=== PATIENT | male | born 1955 | race Caucasian/White ===

== ENCOUNTER 2019-02-06 20:38 | Emergency (ER) | payer OTHER ==
[2019-02-06] MEDS: SODIUM CHLORIDE 0.9% 1000ML 1,000 ML IVS ONE (21:06)
[2019-02-06] MEDS: MEPERIDINE HCL 50 MG/ML VIAL IV ONE ×2 (21:07→21:36)
[2019-02-06] MEDS: ONDANSETRON ODT 8 MG TAB SL ONE (21:07)
[2019-02-06] MEDS: methylPREDNISolone SODIUM SUC 125 MG/2 ML VIAL IV ONE (21:36)
--- NOTE | 2019-02-06 21:48 | ED.PDOC ---
History of Present Illness - General Chief Complaint: Bite: Animal/Insect/Human Stated Complaint: stung by several jt at once Time Seen by Provider: 02/06/19 20:49 Source: patient, family Exam Limitations: no limitations - History of Present Illness Initial Comments: patient comes in today with several 100 stings from what appeared to be wasps or honeybees. Prior to arriving patient had a friend remove one to 200 of the stingers. He has aches and pains and feels like he still has some in his body. He took 50 mg of Benadryl. Has no shortness of breath, wheezing, or history of allergic reaction to bees or wasps. He otherwise feels well with the exception of headache and muscle aches. He has no past medical history. Patient does have an allergy to codeine but states although that makes him hallucinate Demerol has been fine and he believes he can also tolerate morphine. Patient is up to date on his tetanus shot. Timing/Duration: momentarily Severity: severe Improving Factors: nothing Worsening Factors: nothing Associated Symptoms: malaise Allergies/Adverse Reactions: Allergies Codeine Allergy (Verified 09/19/14 11:07) Home Medications: Ambulatory Orders Meclizine HCl 25 mg PO Q4-6H PRN #30 chw 11/16/14 Risperidone [Risperdal] 2 mg PO 11/16/14 Sertraline HCl 150 mg PO DAILY 11/16/14 Review of Systems - Review of Systems Constitutional: States: fever, malaise, weakness EENTM: States: no symptoms reported. Denies: eye pain, ear pain, nose congestion Respiratory: States: no symptoms reported. Denies: cough, short of breath, wheezing Cardiology: States: no symptoms reported. Denies: chest pain, edema, palpitations Gastrointestinal/Abdominal: States: no symptoms reported. Denies: abdominal pain, diarrhea, nausea Genitourinary: States: no symptoms reported Musculoskeletal: States: see HPI Skin: States: see HPI Past Medical History (General) - Patient Medical History Hx Seizures: No Hx Stroke: No Hx Dementia: No Hx Asthma: No Hx of COPD: No Hx Cardiac Disorders: No Hx Congestive Heart Failure: No Hx Pacemaker: No Hx Hypertension: No Hx Thyroid Disease: No Hx Diabetes: No Hx Gastroesophageal Reflux: No Hx Renal Disease: No Hx Cancer: No Hx of HIV: No Hx Hepatitis C: No Hx MRSA: No Surgical History: other - Vaccination History Hx Tetanus, Diphtheria Vaccination: Yes Hx Influenza Vaccination: No Hx Pneumococcal Vaccination: No - Social History Hx Tobacco Use: No Hx Chewing Tobacco Use: No Hx Alcohol Use: Yes - occ Hx Substance Use: No Hx Substance Use Treatment: No Hx Depression: No Hx Physical Abuse: No Hx Emotional Abuse: No Hx Suspected Abuse: No Family Medical History - Family History Daughter Family History: No Known Living Status: Still Living Physical Exam - Physical Exam General Appearance: Alert, Comfortable, No apparent distress Eye Exam: bilateral normal Ears, Nose, Throat: hearing grossly normal, normal ENT inspection, normal pharynx Neck: non-tender, full range of motion, supple, normal inspection Respiratory: chest non-tender, lungs clear, normal breath sounds, no respiratory distress Cardiovascular/Chest: normal peripheral pulses, regular rate, rhythm, no murmur Peripheral Pulses: radial,right: 2+, radial,left: 2+ Gastrointestinal/Abdominal: normal bowel sounds, non tender, soft Neurologic: alert, oriented x 3 Skin Exam: other - approximately 200 areas of stingers/sting sites with 50 removed here, erythema, mild edema Progress - Progress Progress: discussed risk of massive envenomation including rhabdomyolysis and renal failure. Patient currently has some aches and pains but no shortness of breath or wheezing. BMP looks good but we'll repeat CPK, CMP, and CBC in several hours. In the meantime with continued IV fluid. Patient was given Solu-Medrol and he is Rh taken Benadryl at home. We've given him Demerol based on his past reaction with severe aggression and hallucination with codeine and possible hydrocodone. He does state that after his surgery Demerol seemed to work well for him and did not cause significant side effects. At this time the hospital is full and as he is fairly normal and his labs are also reassuring he does not meet transfer criteria. We'll plan on prolonged emergency room evaluation and reevaluate if his labs begin to become abnormal. 02/06/19 21:49 02/07/19 04:28 patient feels much better and denies acute complaint. Headache has improved as has muscle cramps. Explained that most people will react in the first 24 hours but some massive envenomation can affect patients for several weeks after attack. Explained need to monitor urine especially and to return to ER for darkening of urine, muscle pain and to follow up in clinic in 1-2 days to recheck labs especially BUN/CR and CPK - Results/Orders Results/Orders: 02/06/19 21:50 Sodium Chloride 0.9% 1000ML [Ns 1000 ml] 1,000 ml IVS .QD Laboratory Results WBC 8.3 K/mm3 (4.8-10.8) 02/07/19 03:53 RBC 4.99 M/mm3 (4.70-6.10) 02/07/19 03:53 Hgb 14.7 gm/dL (14.0-18.0) 02/07/19 03:53 Hct 43.7 % (42.0-52.0) 02/07/19 03:53 MCV 87.5 fl (80.0-94.0) 02/07/19 03:53 MCH 29.5 pg (27.0-31.0) 02/07/19 03:53 MCHC 33.7 g/dL (33.0-37.0) 02/07/19 03:53 RDW 13.4 % (11.5-14.5) 02/07/19 03:53 Plt Count 236 K/mm3 (130-400) 02/07/19 03:53 MPV 8.7 fl (7.40-10.4) 02/07/19 03:53 Absolute Neuts (auto) 7.60 K/uL (1.8-6.8) H 02/07/19 03:53 Absolute Lymphs (auto) 0.60 K/uL (1.0-3.4) L 02/07/19 03:53 Absolute Monos (auto) 0.10 K/uL (0.2-0.8) L 02/07/19 03:53 Absolute Eos (auto) 0.00 K/uL (0.0-0.4) 02/07/19 03:53 Absolute Basos (auto) 0.00 K/uL (0.0-0.1) 02/07/19 03:53 Neutrophils % 91.2 % (42.0-78.0) H 02/07/19 03:53 Lymphocytes % 7.2 % (20.0-50.0) L 02/07/19 03:53 Monocytes % 1.4 % (2.0-9.0) L 02/07/19 03:53 Eosinophils % 0.1 % (1.0-5.0) L 02/07/19 03:53 Basophils % 0.1 % (0.0-2.0) 02/07/19 03:53 Sodium 138 mmol/L (135-145) 02/07/19 03:53 Potassium 4.5 mmol/L (3.6-5.0) 02/07/19 03:53 Chloride 107 mmol/L (101-111) 02/07/19 03:53 Carbon Dioxide 22 mmol/L (21-31) 02/07/19 03:53 Anion Gap 13.5 (12-18) 02/07/19 03:53 BUN 16 mg/dL (7-18) 02/07/19 03:53 Creatinine 0.83 mg/dL (0.6-1.3) 02/07/19 03:53 BUN/Creatinine Ratio 19.3 (10-20) 02/07/19 03:53 Random Glucose 170 mg/dL (70-105) H D 02/07/19 03:53 Serum Osmolality 280.8 mOsm/L (275-295) 02/07/19 03:53 Calcium 8.6 mg/dL (8.4-10.2) 02/07/19 03:53 Total Bilirubin 0.2 mg/dL (0.2-1.0) 02/07/19 03:53 AST 27 IU/L (10-42) 02/07/19 03:53 ALT 34 IU/L (10-60) 02/07/19 03:53 Alkaline Phosphatase 71 IU/L (42-121) 02/07/19 03:53 Creatine Kinase 110 IU/L (38-174) 02/07/19 03:53 Serum Total Protein 7.6 gm/dL (6.4-8.2) 02/07/19 03:53 Albumin 4.0 g/dl (3.2-5.5) 02/07/19 03:53 Globulin 3.6 gm/dL (2.3-3.5) H 02/07/19 03:53 Albumin/Globulin Ratio 1.1 (1.1-1.9) 02/07/19 03:53 Departure - Departure Clinical Impression: Insect bites Qualifiers: Encounter type: initial encounter Site of insect bite: unspecified site Qualified Code(s): W57.XXXA - Bitten or stung by nonvenomous insect and other nonvenomous arthropods, initial encounter Disposition: Discharge to Home or Self Care Condition: Fair Departure Forms: ED Discharge - Pt. Copy, Patient Portal Self Enrollment Instructions: DI for Animal Bites Home Medications: Ambulatory Orders Meclizine HCl 25 mg PO Q4-6H PRN #30 chw 11/16/14 Risperidone [Risperdal] 2 mg PO 11/16/14 Sertraline HCl 150 mg PO DAILY 11/16/14 Additional Instructions: monitor urine especially and to return to ER for darkening of urine, muscle pain and to follow up in clinic in 1-2 days to recheck labs especially BUN/CR and CPK
[2019-02-06] MEDS: MORPHINE SULFATE INJ 10 MG/ML VIAL IV ONE (22:21)
[2019-02-06] MEDS: SODIUM CHLORIDE 0.9% 1000ML 1,000 ML IVS PRN (22:22)
[2019-02-06 22:31] VITALS: TEMP 99.2
[2019-02-07] MEDS: MORPHINE SULFATE INJ 10 MG/ML VIAL IV ONE (00:35)
[2019-02-07] MEDS: ASPIRIN/ACETAMINOPHEN/CAFFEINE 1 EA TAB PO ONE (02:49)
[2019-02-07 04:27] VITALS: BP 114/66; O2SAT 95
== END 2019-02-07 04:41 | disposition home or self-care (01) ==
LOC: ER 20:38
DX: T63.441A Toxic effect of venom of bees, accidental (unintentional), initial encounter (principal); Z88.5 Allergy status to narcotic agent
CPT/HCPCS: 36415; 80048; 80053; 82550; 85025; J2175; J2270; J2930; J7030